=== PATIENT | female | born 1990 | race Caucasian/White ===

== ENCOUNTER → 2023-08-14 12:00 | Outpatient (REF) | payer BC, SELFPAY | LOC: DHSLP 12:00 | PROVIDERS: ATTENDING PHYSICIAN Internal Medicine; FAMILY PHYSICIAN Nurse Practitioner | DX: G47.30 Sleep apnea, unspecified (principal); R06.83 Snoring; G47.00 Insomnia, unspecified; G47.8 Other sleep disorders | CPT/HCPCS: 95810 ==

== ENCOUNTER → 2023-10-19 08:36 | Outpatient (REF) | payer BC, SELFPAY | LOC: HWRAD 08:36 | PROVIDERS: ATTENDING PHYSICIAN Nurse Practitioner | DX: R79.89 Other specified abnormal findings of blood chemistry (principal) | CPT/HCPCS: 76700 ==

== ENCOUNTER 2024-05-10 06:31 | Day surgery (SDC) | payer BC, SELFPAY ==
[2024-05-10] VITALS (8 sets, daily range): BP systolic 117–140; BP diastolic 67–92; BMI 42.8
[2024-05-10] MEDS: TYLENOL 1000 MG PO (11:43)
[2024-05-10] MEDS: NORMOSOL-R/PLASMALYTE-A 1000 IV (11:43)
[2024-05-10] MEDS: TRANSDERM-SCOP 1 PATCH TRANSDERM (12:12)
[2024-05-10] MEDS: DILAUDID 0.5 MG IV (13:49)
[2024-05-10] MEDS: DILAUDID 0.25 MG IV (14:09)
[2024-05-10] MEDS: ZOFRAN 4 MG IV (14:38)
== END 2024-05-10 16:25 | disposition home or self-care (01) ==
LOC: SDS 06:31
PROVIDERS: ATTENDING PHYSICIAN Otolaryngology
PROC: 09TL7ZZ Resection of Nasal Turbinate, Via Natural or Artificial Opening (ICD-10-PCS; 2024-05-10)
PROC: 09BM8ZZ Excision of Nasal Septum, Via Natural or Artificial Opening Endoscopic (ICD-10-PCS; 2024-05-10)
DX: J34.2 Deviated nasal septum (principal); J34.3 Hypertrophy of nasal turbinates
CPT/HCPCS: 30520; 30140